=== PATIENT | male | born 1935 | race Caucasian/White ===

== ENCOUNTER 2020-09-25 06:59 | Day surgery (SDC) | payer OTHER, BC ==
[2020-09-20 14:36] VITALS: BMI 28.3
[2020-09-25] MEDS ORDERED: CARBACHOL 0.01% INTRA-OCULAR 1.5 ML VIAL ONE (07:18)
[2020-09-25] MEDS ORDERED: LIDOCAINE 1% P/F 10 MG/ML VIAL ONE (07:18)
[2020-09-25] MEDS ORDERED: BSS (NA/CA/MG/K) BALANCED SALT SOLUTION OPHTH SOLN 15 ML BOTTLE ONE (07:18)
[2020-09-25] MEDS ORDERED: TETRACAINE 0.5% OPHTH SOLN 2 ML BOTTLE ONE (07:18)
[2020-09-25] MEDS ORDERED: EPINEPHrine/PF 1 MG/1 ML (1:1,000) AMPULE ONE (07:19)
[2020-09-25] MEDS ORDERED: NEO/POLYMYX B SULF/DEXAMETH OPHTHALMIC 5ML BOTTLE ONE (07:19)
[2020-09-25] MEDS: TROPICAMIDE 1% OPHTH SOLN 15 ML BOTTLE ONE ×3 (07:55→08:05)
[2020-09-25] MEDS: CIPROFLOXACIN 0.3% EYE DROPS 5 ML BOTTLE ONE ×3 (07:55→08:05)
[2020-09-25] MEDS: PHENYLEPHRINE 2.5% OPHTH SOLN 15 ML BOTTLE ONE ×3 (07:55→08:05)
[2020-09-25] MEDS: CYCLOPENTOLATE 2% OPHTH SOLN 2 ML BOTTLE ONE ×3 (07:55→08:05)
[2020-09-25 08:03] VITALS: TEMP 98.4
[2020-09-25] MEDS ORDERED: MIDAZOLAM HCL 2 MG/2 ML SINGLE DOSE VIAL ONE (08:41)
[2020-09-25 09:31] VITALS: BP 131/77; PULSE 59
== END 2020-09-25 10:00 | disposition home or self-care (01) ==
LOC: FASU 06:59
PROVIDERS: ATTEND Ophthalmology
PROC: 08RK3JZ Replacement of Left Lens with Synthetic Substitute, Percutaneous Approach (ICD-10-PCS; principal; 2020-09-25 08:40)
DX: H26.8 Other specified cataract (principal)

== ENCOUNTER 2022-11-28 15:32 | Inpatient (IN) | payer OTHER, BC ==
[2022-11-28 15:53] VITALS: BMI 26.5
[2022-11-28] MEDS ORDERED: LABETALOL HCL 5 MG/1 ML (100MG/20 ML VIAL) IVPUSH ONE (15:59)
[2022-11-28] MEDS ORDERED: METOPROLOL TARTRATE 50 MG TABLET (FP) PO ONE (16:13)
[2022-11-28 16:42] LABS: BASO % 1.1 % (0-2.0); EOS % 2.6 % (0-4.5); HEMOGLOBIN 14.5 GM/dL (11.7-16.9); LYMPH % 24.5 % (8-40); MCH 29.9 pg (25.7-33.7); MCHC 33.6 g/dl (32.0-35.9); MEAN PLT VOLUME 8.4 fl (7.5-11.1); MONO % 7.8 % (3.8-10.2); PLATELET COUNT 179 10^3/uL (134-434); RBC 4.83 M/mm3 (4.00-5.60); RDW 13.4 % (11.9-15.9); WHITE BLOOD COUNT 7.3 K/mm3 (4.0-10.0)
[2022-11-28] MEDS ORDERED: METOPROLOL TARTRATE 50 MG TABLET (FP) ONE (16:47)
[2022-11-28 16:59] LABS: CALCIUM 8.8 mg/dL (8.5-10.1)
[2022-11-28 17:00] LABS: ALBUMIN 3.6 g/dl (3.4-5.0); BLOOD UREA NITROGEN 19.1 mg/dL (7-18)
[2022-11-28 17:03] LABS: CREATININE 1.2 mg/dL (0.55-1.3)
[2022-11-28 17:04] LABS: BILIRUBIN,TOTAL 0.6 mg/dL (0.2-1); TOT PROT 6.6 g/dl (6.4-8.2)
[2022-11-28 17:08] LABS: N-TERMINAL BNP 1551.8 pg/ml (5-450)
[2022-11-28 17:16] LABS: EPI CELLS 1 /uL (0-25.1); HYALINE CASTS 0 /uL (0-3.1); URINE APPEARANCE CLEAR; URINE BACTERIA 9 /uL (0-1359); URINE BILIRUBIN NEGATIVE (NEGATIVE); URINE COLOR YELLOW; URINE GLUCOSE (UA) NEGATIVE (NEGATIVE); URINE KETONE NEGATIVE (NEGATIVE); URINE LEUK ESTERASE NEGATIVE (NEGATIVE); URINE NITRITE NEGATIVE (NEGATIVE); URINE PROTEIN TRACE (NEGATIVE); URINE RBC 18 /uL (0-23.9); URINE UROBILINOGEN 0.2 mg/dL (0.2-1.0); URINE WBC 3 /uL (0-25.8)
[2022-11-28] MEDS ORDERED: FUROSEMIDE 40 MG/4 ML INJECTABLE VIAL IVPUSH ONE (19:01)
[2022-11-28] MEDS ORDERED: FUROSEMIDE 40 MG/4 ML INJECTABLE VIAL ONE (19:34)
[2022-11-29] MEDS ORDERED: amLODIPine BESYLATE 10 MG TABLET (FP) PO ONE ×2 (05:17→23:43)
[2022-11-29] MEDS ORDERED: LOSARTAN POTASSIUM 50 MG TABLET ONE (08:45)
[2022-11-29] MEDS ORDERED: LOSARTAN POTASSIUM 50 MG TABLET PO SCH (10:00)
[2022-11-29 11:05] LABS: BASO % 0.7 % (0-2.0); EOS % 0.5 % (0-4.5); HEMATOCRIT 44.6 % (35.4-49); LYMPH % 12.6 % (8-40); MCH 29.7 pg (25.7-33.7); MCHC 33.5 g/dl (32.0-35.9); MEAN CELL VOLUME 88.5 fl (80-96); MEAN PLT VOLUME 7.9 fl (7.5-11.1); MONO % 7.9 % (3.8-10.2); NEUT % 78.3 % (42.8-82.8); PLATELET COUNT 189 10^3/uL (134-434); RBC 5.04 M/mm3 (4.00-5.60); RDW 13.7 % (11.9-15.9); WHITE BLOOD COUNT 10.8 K/mm3 (4.0-10.0)
[2022-11-29 11:39] LABS: CALCIUM 8.9 mg/dL (8.5-10.1)
[2022-11-29 11:40] LABS: ALBUMIN 3.7 g/dl (3.4-5.0); BLOOD UREA NITROGEN 17.3 mg/dL (7-18); MAGNESIUM 1.7 mg/dL (1.8-2.4)
[2022-11-29 11:43] LABS: CREATININE 1.1 mg/dL (0.55-1.3)
[2022-11-29 11:44] LABS: BILIRUBIN,TOTAL 0.6 mg/dL (0.2-1); TOT PROT 6.9 g/dl (6.4-8.2)
[2022-11-29] MEDS ORDERED: MAGNESIUM SULF 50% (8.12 MEQ/2 ML-1 GM VIAL) IVPB ONE (17:04)
[2022-11-29] MEDS ORDERED: MAGNESIUM SULFATE IN WATER 2 GM/50 ML IVPB IVPB ONE (18:00)
[2022-11-29] MEDS: ATORVASTATIN CA 20 MG TABLET (FP) PO SCH (23:14)
[2022-11-30] MEDS: ATORVASTATIN CA 20 MG TABLET (FP) PO SCH ×2 (00:35→21:06)
[2022-11-30] MEDS: LOSARTAN POTASSIUM 50 MG TABLET PO SCH (09:25)
[2022-11-30] MEDS: amLODIPine BESYLATE 5 MG TABLET (FP) PO SCH (09:25)
[2022-11-30 11:39] LABS: BASO % 0.5 % (0-2.0); HEMATOCRIT 45.8 % (35.4-49); HEMOGLOBIN 15.6 GM/dL (11.7-16.9); MCHC 34.1 g/dl (32.0-35.9); MEAN CELL VOLUME 88.1 fl (80-96); MEAN PLT VOLUME 8.2 fl (7.5-11.1); MONO % 9.7 % (3.8-10.2); NEUT % 77.8 % (42.8-82.8); PLATELET COUNT 200 10^3/uL (134-434); RDW 13.2 % (11.9-15.9); WHITE BLOOD COUNT 9.9 K/mm3 (4.0-10.0)
[2022-11-30 11:44] LABS: ALBUMIN 3.7 g/dl (3.4-5.0); BLOOD UREA NITROGEN 22.4 mg/dL (7-18); CALCIUM 8.8 mg/dL (8.5-10.1); MAGNESIUM 2.2 mg/dL (1.8-2.4)
[2022-11-30 11:46] LABS: CREATININE 1.2 mg/dL (0.55-1.3)
[2022-11-30 11:48] LABS: BILIRUBIN,TOTAL 0.9 mg/dL (0.2-1)
[2022-11-30] MEDS: HEPARIN NA (PORCINE) 5,000 UNITS/ML 1ML VIAL SQ SCH (21:05)
[2022-12-01 07:34] VITALS: RESP 20
[2022-12-01] MEDS: amLODIPine BESYLATE 5 MG TABLET (FP) PO SCH (09:54)
[2022-12-01] MEDS: LOSARTAN POTASSIUM 50 MG TABLET PO SCH (09:55)
[2022-12-01] MEDS: HEPARIN NA (PORCINE) 5,000 UNITS/ML 1ML VIAL SQ SCH (09:55)
[2022-12-01 16:26] VITALS: BP 134/65; PULSE 61; TEMP 97.7
== END 2022-12-01 17:00 | disposition home health service (06) | DRG 305 ==
LOC: JER 15:32 → JERBED 20:04 → J4W 11-29 22:56
PROVIDERS: ADMIT Internal Medicine; ATTEND Family Medicine
DX: I16.0 Hypertensive urgency (principal); I25.10 Atherosclerotic heart disease of native coronary artery without angina pectoris; E78.5 Hyperlipidemia, unspecified; R79.89 Other specified abnormal findings of blood chemistry; I10 Essential (primary) hypertension; E87.6 Hypokalemia; R42 Dizziness and giddiness; E83.42 Hypomagnesemia; R41.0 Disorientation, unspecified; Z85.46 Personal history of malignant neoplasm of prostate; Z95.5 Presence of coronary angioplasty implant and graft
CPT/HCPCS: 0241U-QW; 36415; 70450-TC; 71045-TC-FY; 80053; 81003; 82607; 83605; 83735; 83880; 84443; 84484; 85025; 93005; 93010; 93306-TC; 93880-TC; 99285-25; J1644

== ENCOUNTER 2025-01-07 15:22 | Inpatient (IN) | payer OTHER, BC ==
[2025-01-07 16:59] LABS: VENOUS BASE EXCESS -2.5 mmol/L (-2-2); VENOUS PCO2 42.5 mmHg (38-52); VENOUS PH 7.352 (7.310-7.410)
[2025-01-07 17:12] LABS: POTASSIUM 3.4 mmol/L (3.5-5.1)
[2025-01-07 17:14] LABS: CALCIUM 8.8 mg/dL (8.5-10.1)
[2025-01-07 17:15] LABS: ALBUMIN 2.5 g/dl (3.4-5.0)
[2025-01-07 17:18] LABS: CREATININE 1.1 mg/dL (0.55-1.3)
[2025-01-07 17:19] LABS: BILIRUBIN,TOTAL 1.4 mg/dL (0.2-1); HEMATOCRIT 37.6 % (35.4-49); HEMOGLOBIN 12.5 GM/dL (11.7-16.9); INR 1.29 (0.83-1.09); MCH 29.8 pg (25.7-33.7); MCHC 33.3 g/dl (32.0-35.9); MEAN CELL VOLUME 89.4 fl (80-96); MEAN PLT VOLUME 6.9 fl (7.5-11.1); PLATELET COUNT 365 10^3/uL (134-434); PROTHROMBIN TIME (PATIENT) 14.1 SEC (9.7-13.0); RBC 4.21 M/mm3 (4.00-5.60); RDW 13.1 % (11.9-15.9); TOT PROT 6.6 g/dl (6.4-8.2)
[2025-01-07 17:21] LABS: ACTIVATED PTT 29.9 SECONDS (25.2-36.5)
[2025-01-07] MEDS: SODIUM CHLORIDE 0.9% 500 ML INFUS.BAG IV ONE (18:02)
[2025-01-07 18:19] LABS: ANISOCYTOSIS 1+; MACROCYTOSIS 0
[2025-01-07 18:55] LABS: EPI CELLS 12 /uL (0-25.1); HYALINE CASTS 1 /uL (0-3.1); URINE APPEARANCE Clear; URINE BACTERIA 2 /uL (0-1359); URINE BILIRUBIN Negative (NEGATIVE); URINE COLOR Yellow; URINE GLUCOSE (UA) Negative (NEGATIVE); URINE KETONE Trace (NEGATIVE); URINE LEUK ESTERASE Negative (NEGATIVE); URINE NITRITE Negative (NEGATIVE); URINE PROTEIN 30 (NEGATIVE); URINE RBC 10 /uL (0-23.9); URINE WBC 14 /uL (0-25.8)
[2025-01-07] MEDS ORDERED: ENOXAPARIN NA (PORCINE) 80 MG/0.8 ML DISP.SYRIN SQ ONE (21:46)
[2025-01-07] MEDS ORDERED: ASPIRIN 81 MG CHEWABLE TABLETS ONE (21:46)
[2025-01-07] MEDS ORDERED: ATORVASTATIN CA 20 MG TABLET (FP) ONE (21:46)
[2025-01-07] MEDS: ENOXAPARIN NA (PORCINE) 80 MG/0.8 ML DISP.SYRIN SQ SCH (22:07)
[2025-01-07] MEDS: ASPIRIN 81 MG CHEWABLE TABLETS PO SCH (22:07)
[2025-01-07] MEDS: ATORVASTATIN CA 20 MG TABLET (FP) PO SCH (22:07)
[2025-01-08] MEDS: ACETAMINOPHEN 325 MG TABLET (FP) PO PRN (05:12)
[2025-01-08 07:07] LABS: HEMATOCRIT 31.2 % (35.4-49); HEMOGLOBIN 10.5 GM/dL (11.7-16.9); MCH 29.9 pg (25.7-33.7); MCHC 33.7 g/dl (32.0-35.9); MEAN CELL VOLUME 88.6 fl (80-96); PLATELET COUNT 323 10^3/uL (134-434); RBC 3.52 M/mm3 (4.00-5.60); RDW 13.1 % (11.9-15.9); WHITE BLOOD COUNT 21.4 K/mm3 (4.0-10.0)
[2025-01-08 07:11] LABS: POTASSIUM 3.2 mmol/L (3.5-5.1)
[2025-01-08 07:13] LABS: CALCIUM 8.3 mg/dL (8.5-10.1)
[2025-01-08 07:14] LABS: MAGNESIUM 1.8 mg/dL (1.8-2.4)
[2025-01-08 07:17] LABS: PHOSPHOROUS 3.8 mg/dL (2.5-4.9)
[2025-01-08] MEDS ORDERED: POTASSIUM CHLORIDE ORAL LIQUID 20 MEQ/15 ML ONE (08:54)
[2025-01-08] MEDS: POTASSIUM CHLORIDE ORAL LIQUID 20 MEQ/15 ML PO ONE (09:19)
[2025-01-08] MEDS ORDERED: LOSARTAN POTASSIUM 50 MG TABLET ONE (10:16)
[2025-01-08] MEDS: methylPREDNISolone NA SUCC 40 MG/1 ML VIAL IVPUSH SCH (11:08)
[2025-01-08] MEDS: LOSARTAN POTASSIUM 50 MG TABLET PO SCH (11:08)
[2025-01-09 07:11] LABS: HEMATOCRIT 36.8 % (35.4-49); HEMOGLOBIN 12.1 GM/dL (11.7-16.9); MCH 29.9 pg (25.7-33.7); MCHC 32.8 g/dl (32.0-35.9); MEAN CELL VOLUME 91.2 fl (80-96); MEAN PLT VOLUME 7.7 fl (7.5-11.1); PLATELET COUNT 368 10^3/uL (134-434); RBC 4.04 M/mm3 (4.00-5.60); RDW 13.3 % (11.9-15.9); WHITE BLOOD COUNT 21.1 K/mm3 (4.0-10.0)
[2025-01-09 07:29] LABS: CALCIUM 9.1 mg/dL (8.5-10.1); POTASSIUM 3.7 mmol/L (3.5-5.1)
[2025-01-09 07:30] LABS: ALBUMIN 2.2 g/dl (3.4-5.0); BLOOD UREA NITROGEN 38.6 mg/dL (7-18)
[2025-01-09 07:33] LABS: CREATININE 1.1 mg/dL (0.55-1.3)
[2025-01-09 07:34] LABS: BILIRUBIN,TOTAL 0.7 mg/dL (0.2-1); TOT PROT 6.4 g/dl (6.4-8.2)
[2025-01-09] MEDS: CEFTRIAXONE 1 G/50 ML PREMIX 50 ML IVPB SCH (10:06)
[2025-01-09] MEDS: AZITHROMYCIN IVPB 500 MG/250 ML BAG IVPB SCH (10:06)
[2025-01-09 14:17] VITALS: BMI 24.2
[2025-01-09] MEDS: AMINO ACIDS/PROTEIN HYDROLYS 30 ML LIQUID.PKT PO SCH (16:54)
[2025-01-10 07:05] LABS: HEMATOCRIT 34.8 % (35.4-49); HEMOGLOBIN 11.2 GM/dL (11.7-16.9); MCH 29.2 pg (25.7-33.7); MCHC 32.4 g/dl (32.0-35.9); MEAN CELL VOLUME 90.1 fl (80-96); MEAN PLT VOLUME 7.4 fl (7.5-11.1); PLATELET COUNT 377 10^3/uL (134-434); RBC 3.86 M/mm3 (4.00-5.60); RDW 13.1 % (11.9-15.9); WHITE BLOOD COUNT 17.9 K/mm3 (4.0-10.0)
[2025-01-10 07:26] LABS: POTASSIUM 3.8 mmol/L (3.5-5.1)
[2025-01-10 07:33] LABS: BLOOD UREA NITROGEN 42.7 mg/dL (7-18); CALCIUM 8.8 mg/dL (8.5-10.1)
[2025-01-10 07:34] LABS: ALBUMIN 2.1 g/dl (3.4-5.0)
[2025-01-10 07:38] LABS: BILIRUBIN,TOTAL 0.5 mg/dL (0.2-1); TOT PROT 5.9 g/dl (6.4-8.2)
[2025-01-10 09:34] LABS: ANISOCYTOSIS 0; MACROCYTOSIS 0
[2025-01-10] MEDS: MULTIVITAMINS (DAILY MVI) TABLET (FP) PO SCH (10:09)
[2025-01-10] MEDS: ASCORBIC ACID 500 MG TABLET (FP) PO SCH (10:09)
[2025-01-10] MEDS: ZINC SULFATE 220 MG CAPSULE (FP) PO SCH (10:09)
[2025-01-10] MEDS ORDERED: DEXTROSE 5%-0.45% SALINE 1,000 ML IV SCH (22:30)
[2025-01-10] MEDS: SODIUM CHLORIDE 1,000 ML IV SCH (22:44)
[2025-01-11] MEDS ORDERED: HALOPERIDOL LACTATE 5 MG/ML IM PRN (09:15)
[2025-01-11] MEDS: PANTOPRAZOLE SODIUM 40 MG VIAL IVPUSH SCH (11:18)
[2025-01-11] MEDS: HEPARIN NA (PORCINE) 5,000 UNITS/ML 1ML VIAL SQ SCH (11:18)
[2025-01-11] MEDS: ALBUTEROL SO4 0.083% IH SOL 2.5 MG/3 ML VIAL.NEB. NEB SCH (15:20)
[2025-01-12] MEDS: METOPROLOL TARTRATE 5 MG/5 ML VIAL IVPUSH PRN (09:42)
[2025-01-12] MEDS: MINERAL OIL/PET HY-PHL TOPICAL OINTMENT 454 GM JAR TP SCH (10:58)
[2025-01-12 14:13] LABS: HEMATOCRIT 36.1 % (35.4-49); HEMOGLOBIN 11.9 GM/dL (11.7-16.9); MCHC 32.9 g/dl (32.0-35.9); MEAN CELL VOLUME 91.2 fl (80-96); MEAN PLT VOLUME 7.8 fl (7.5-11.1); PLATELET COUNT 323 10^3/uL (134-434); RBC 3.96 M/mm3 (4.00-5.60); RDW 12.8 % (11.9-15.9); WHITE BLOOD COUNT 15.5 K/mm3 (4.0-10.0)
[2025-01-12 14:46] LABS: POTASSIUM 3.6 mmol/L (3.5-5.1)
[2025-01-12 14:47] LABS: ALBUMIN 2.1 g/dl (3.4-5.0); CALCIUM 8.5 mg/dL (8.5-10.1)
[2025-01-12 14:48] LABS: BLOOD UREA NITROGEN 35.6 mg/dL (7-18); MAGNESIUM 1.9 mg/dL (1.8-2.4)
[2025-01-12 14:51] LABS: PHOSPHOROUS 2.9 mg/dL (2.5-4.9)
[2025-01-12 14:52] LABS: BILIRUBIN,TOTAL 0.6 mg/dL (0.2-1); TOT PROT 5.8 g/dl (6.4-8.2)
[2025-01-12] MEDS: AMINO ACIDS 4.25%/D5W 1,000 ML IV SCH (16:00)
[2025-01-12] MEDS: POTASSIUM CHLORIDE 20 MEQ in AMINO ACIDS 4.25%/D5W 1,000 ML IV SCH (18:44)
[2025-01-12] MEDS: METOPROLOL TARTRATE 5 MG/5 ML VIAL IVPUSH SCH (22:11)
[2025-01-13 07:44] LABS: HEMATOCRIT 37.8 % (35.4-49); HEMOGLOBIN 12.3 GM/dL (11.7-16.9); MCH 29.5 pg (25.7-33.7); MCHC 32.6 g/dl (32.0-35.9); MEAN CELL VOLUME 90.4 fl (80-96); MEAN PLT VOLUME 8.1 fl (7.5-11.1); PLATELET COUNT 328 10^3/uL (134-434); RBC 4.18 M/mm3 (4.00-5.60); RDW 12.6 % (11.9-15.9); WHITE BLOOD COUNT 16.5 K/mm3 (4.0-10.0)
[2025-01-13 08:13] LABS: ALBUMIN 2.3 g/dl (3.4-5.0); BLOOD UREA NITROGEN 34.2 mg/dL (7-18); CALCIUM 8.5 mg/dL (8.5-10.1); MAGNESIUM 1.9 mg/dL (1.8-2.4)
[2025-01-13 08:14] LABS: POTASSIUM 3.6 mmol/L (3.5-5.1)
[2025-01-13 08:16] LABS: BILIRUBIN,TOTAL 0.7 mg/dL (0.2-1); CREATININE 0.8 mg/dL (0.55-1.3); PHOSPHOROUS 2.2 mg/dL (2.5-4.9)
[2025-01-13 08:18] LABS: TOT PROT 6.2 g/dl (6.4-8.2)
[2025-01-13] MEDS: NAPH,MB-DB/K PH,MBDB POWDER PACKET PO SCH (11:40)
[2025-01-15 07:30] LABS: HEMATOCRIT 39.1 % (35.4-49); HEMOGLOBIN 12.8 GM/dL (11.7-16.9); MCH 29.6 pg (25.7-33.7); MCHC 32.7 g/dl (32.0-35.9); MEAN CELL VOLUME 90.5 fl (80-96); MEAN PLT VOLUME 8.5 fl (7.5-11.1); PLATELET COUNT 302 10^3/uL (134-434); RBC 4.33 M/mm3 (4.00-5.60); WHITE BLOOD COUNT 13.7 K/mm3 (4.0-10.0)
[2025-01-15 07:50] LABS: POTASSIUM 3.6 mmol/L (3.5-5.1)
[2025-01-15 08:01] LABS: ALBUMIN 2.4 g/dl (3.4-5.0); BLOOD UREA NITROGEN 30.8 mg/dL (7-18); CALCIUM 8.6 mg/dL (8.5-10.1)
[2025-01-15 08:03] LABS: CREATININE 0.9 mg/dL (0.55-1.3)
[2025-01-15 08:05] LABS: BILIRUBIN,TOTAL 0.7 mg/dL (0.2-1); TOT PROT 6.3 g/dl (6.4-8.2)
[2025-01-15] MEDS: amLODIPine BESYLATE 5 MG TABLET (FP) PO SCH (10:33)
[2025-01-16 08:11] LABS: POTASSIUM 3.8 mmol/L (3.5-5.1)
[2025-01-16 08:13] LABS: HEMATOCRIT 40.5 % (35.4-49); HEMOGLOBIN 13.3 GM/dL (11.7-16.9); MCH 29.5 pg (25.7-33.7); MEAN CELL VOLUME 89.6 fl (80-96); MEAN PLT VOLUME 8.5 fl (7.5-11.1); PLATELET COUNT 319 10^3/uL (134-434); RBC 4.52 M/mm3 (4.00-5.60); RDW 13.3 % (11.9-15.9); WHITE BLOOD COUNT 12.1 K/mm3 (4.0-10.0)
[2025-01-16 08:22] LABS: BLOOD UREA NITROGEN 35.2 mg/dL (7-18); CALCIUM 8.5 mg/dL (8.5-10.1)
[2025-01-16 08:23] LABS: ALBUMIN 2.4 g/dl (3.4-5.0)
[2025-01-16 08:27] LABS: BILIRUBIN,TOTAL 0.6 mg/dL (0.2-1); TOT PROT 6.1 g/dl (6.4-8.2)
[2025-01-16] MEDS: PANTOPRAZOLE 40 MG TABLET PO SCH (10:13)
[2025-01-17 02:56] VITALS: RESP 18
[2025-01-17 09:31] LABS: HEMATOCRIT 37.3 % (35.4-49); HEMOGLOBIN 12.3 GM/dL (11.7-16.9); MCH 29.9 pg (25.7-33.7); MCHC 32.9 g/dl (32.0-35.9); MEAN CELL VOLUME 90.9 fl (80-96); MEAN PLT VOLUME 8.3 fl (7.5-11.1); PLATELET COUNT 262 10^3/uL (134-434); RBC 4.11 M/mm3 (4.00-5.60); RDW 13.2 % (11.9-15.9); WHITE BLOOD COUNT 10.2 K/mm3 (4.0-10.0)
[2025-01-17] MEDS: amLODIPine BESYLATE 5 MG TABLET (FP) PO SCH (09:56)
[2025-01-17] MEDS: NAPH,MB-DB/K PH,MBDB POWDER PACKET PO SCH (09:56)
[2025-01-17] MEDS: PANTOPRAZOLE 40 MG TABLET PO SCH (09:56)
[2025-01-17] MEDS: CEFTRIAXONE 1 G/50 ML PREMIX 50 ML IVPB SCH (09:57)
[2025-01-17] MEDS: HEPARIN NA (PORCINE) 5,000 UNITS/ML 1ML VIAL SQ SCH (09:57)
[2025-01-17] MEDS: MINERAL OIL/PET HY-PHL TOPICAL OINTMENT 454 GM JAR TP SCH (09:58)
[2025-01-17] MEDS: ALBUTEROL SO4 0.083% IH SOL 2.5 MG/3 ML VIAL.NEB. NEB SCH (11:15)
[2025-01-17] MEDS ORDERED: SODIUM CHLORIDE 0.45% 1,000 ML IV SCH (15:15)
[2025-01-18] MEDS: NAPH,MB-DB/K PH,MBDB POWDER PACKET PO SCH (09:16)
[2025-01-18 09:17] LABS: POTASSIUM 3.9 mmol/L (3.5-5.1)
[2025-01-18 09:27] LABS: CALCIUM 8.3 mg/dL (8.5-10.1)
[2025-01-18 09:28] LABS: ALBUMIN 2.3 g/dl (3.4-5.0); BLOOD UREA NITROGEN 25.4 mg/dL (7-18)
[2025-01-18 09:31] LABS: CREATININE 0.8 mg/dL (0.55-1.3); PHOSPHOROUS 2.3 mg/dL (2.5-4.9)
[2025-01-18 09:32] LABS: BILIRUBIN,TOTAL 1.2 mg/dL (0.2-1)
[2025-01-18 09:33] LABS: TOT PROT 5.4 g/dl (6.4-8.2)
[2025-01-18 14:16] VITALS: BP 122/65; PULSE 66; TEMP 98.4
== END 2025-01-18 22:00 | disposition home or self-care (01) | DRG 871 ==
LOC: JER 15:22 → JERBED 19:58 → J4W 01-08 10:27 → J6S 01-16 23:19
PROVIDERS: ADMIT Internal Medicine; ATTEND Family Medicine
DX: A41.9 Sepsis, unspecified organism (principal); J18.9 Pneumonia, unspecified organism; J98.11 Atelectasis; L89.152 Pressure ulcer of sacral region, stage 2; L89.321 Pressure ulcer of left buttock, stage 1; L89.311 Pressure ulcer of right buttock, stage 1; E78.5 Hyperlipidemia, unspecified; I48.91 Unspecified atrial fibrillation; I25.118 Atherosclerotic heart disease of native coronary artery with other forms of angina pectoris; F03.90 Unspecified dementia, unspecified severity, without behavioral disturbance, psychotic disturbance, mood disturbance, and anxiety; I12.9 Hypertensive chronic kidney disease with stage 1 through stage 4 chronic kidney disease, or unspecified chronic kidney disease; R56.9 Unspecified convulsions; N18.9 Chronic kidney disease, unspecified; D64.9 Anemia, unspecified; I25.10 Atherosclerotic heart disease of native coronary artery without angina pectoris; G25.3 Myoclonus
CPT/HCPCS: 0241U-QW; 36415; 70450-TC; 70496-TC; 70498-TC; 71045-TC-FY; 80048; 80053; 81003; 82140; 82607; 82803; 82962; 83605; 83690; 83735; 84100; 84443; 84484; 85025; 85027; 85610; 85730; 86140; 86850; 86900; 86901; 87040; 87086; 87899; 93005; 93010; 93880-TC; 94010; 94640; 97116-GP; 97162-GP; 99291; J1644; Q9967

== ENCOUNTER 2025-01-27 01:56 | Inpatient (IN) | payer OTHER, BC ==
[2025-01-27 02:12] VITALS: BMI 23.6
[2025-01-27] MEDS ORDERED: ACETAMINOPHEN INJECTION 100 ML ONE (03:05)
[2025-01-27] MEDS ORDERED: MORPHINE SULFATE 2 MG/ML SYRINGE ONE (03:05)
[2025-01-27 03:08] LABS: BASO % 0.8 % (0-2.0); EOS % 1.7 % (0-4.5); HEMATOCRIT 33.1 % (35.4-49); HEMOGLOBIN 11.4 GM/dL (11.7-16.9); LYMPH % 11.7 % (8-40); MCH 30.5 pg (25.7-33.7); MCHC 34.3 g/dl (32.0-35.9); MEAN CELL VOLUME 88.7 fl (80-96); MONO % 7.1 % (3.8-10.2); NEUT % 78.7 % (42.8-82.8); PLATELET COUNT 181 10^3/uL (134-434); RBC 3.74 M/mm3 (4.00-5.60); RDW 13.8 % (11.9-15.9); WHITE BLOOD COUNT 6.2 K/mm3 (4.0-10.0)
[2025-01-27] MEDS: morphine CARPU-JECT 2 MG/1 ML DISP.SYRIN IVPUSH ONE (03:11)
[2025-01-27] MEDS: ACETAMINOPHEN 1000 MG/100 ML BAG IVPB ONE (03:11)
[2025-01-27 03:31] LABS: INR 1.07 (0.83-1.09); PROTHROMBIN TIME (PATIENT) 11.8 SEC (9.7-13.0)
[2025-01-27 03:33] LABS: ACTIVATED PTT 26.3 SECONDS (25.2-36.5)
[2025-01-27 03:35] LABS: POTASSIUM 4.7 mmol/L (3.5-5.1)
[2025-01-27 03:37] LABS: ALBUMIN 2.4 g/dl (3.4-5.0)
[2025-01-27 03:38] LABS: BLOOD UREA NITROGEN 26.4 mg/dL (7-18)
[2025-01-27 03:42] LABS: BILIRUBIN,TOTAL 0.6 mg/dL (0.2-1); TOT PROT 5.6 g/dl (6.4-8.2)
[2025-01-27] MEDS: ACETAMINOPHEN 1000 MG/100 ML BAG IVPB PRN (12:05)
[2025-01-27] MEDS ORDERED: ALBUTEROL SO4 2.5/IPRATROPIUM 0.5 INH SOL 3 ML VIAL.NEB. NEB PRN (15:38)
[2025-01-28] MEDS ORDERED: BUPIVACAINE HCL/PF 0.5% (5MG/ML) 10 ML VIAL ONE (07:35)
[2025-01-28] MEDS ORDERED: SUCCINYLCHOLINE CHLORIDE 200 MG/10 ML SYRINGE ONE (08:09)
[2025-01-28] MEDS ORDERED: PROPOFOL 40 ML ONE (08:12)
[2025-01-28] MEDS ORDERED: MIDAZOLAM HCL 2 MG/2 ML SINGLE DOSE VIAL ONE (08:54)
[2025-01-28] MEDS: ceFAZolin SODIUM 1 GM VIAL IVPB ONE (09:10)
[2025-01-28] MEDS ORDERED: ceFAZolin SODIUM 1 GM VIAL ONE (09:14)
[2025-01-28 09:19] LABS: BASO % 0.6 % (0-2.0); EOS % 0.4 % (0-4.5); HEMATOCRIT 28.4 % (35.4-49); HEMOGLOBIN 9.8 GM/dL (11.7-16.9); LYMPH % 15.2 % (8-40); MCH 30.4 pg (25.7-33.7); MCHC 34.6 g/dl (32.0-35.9); MEAN PLT VOLUME 7.7 fl (7.5-11.1); MONO % 8.2 % (3.8-10.2); NEUT % 75.6 % (42.8-82.8); PLATELET COUNT 149 10^3/uL (134-434); RBC 3.23 M/mm3 (4.00-5.60); RDW 14.1 % (11.9-15.9); WHITE BLOOD COUNT 6.8 K/mm3 (4.0-10.0)
[2025-01-28] MEDS ORDERED: ONDANSETRON 4 MG/2 ML VIAL ONE (09:36)
[2025-01-28] MEDS ORDERED: DEXAMETHASONE SOD PHOSPHATE 4 MG/1 ML VIAL ONE (09:36)
[2025-01-28 09:39] LABS: POTASSIUM 4.2 mmol/L (3.5-5.1)
[2025-01-28 09:42] LABS: ALBUMIN 2.4 g/dl (3.4-5.0); BLOOD UREA NITROGEN 28.3 mg/dL (7-18)
[2025-01-28 09:46] LABS: TOT PROT 5.2 g/dl (6.4-8.2)
[2025-01-28] MEDS ORDERED: ALBUTEROL SO4 2.5/IPRATROPIUM 0.5 INH SOL 3 ML VIAL.NEB. NEB PRN (10:43)
[2025-01-28] MEDS ORDERED: ACETAMINOPHEN 1000 MG/100 ML BAG IVPB PRN (10:43)
[2025-01-28] MEDS: amLODIPine BESYLATE 5 MG TABLET (FP) PO SCH (13:33)
[2025-01-28] MEDS: CEFAZOLIN 1 GM/D5W 1 GM/50 ML BAG IVPB SCH (14:08)
[2025-01-28] MEDS: ACETAMINOPHEN 1000 MG/100 ML BAG IVPB ONE (20:32)
[2025-01-29] MEDS: MELATONIN 5 MG TABLETS PO PRN (01:13)
[2025-01-29] MEDS ORDERED: ACETAMINOPHEN 1000 MG/100 ML BAG IVPB PRN (02:30)
[2025-01-29] MEDS: ENOXAPARIN NA (PORCINE) 30 MG/0.3 ML DISP.SYRIN SQ SCH (09:05)
[2025-01-29] MEDS: amLODIPine BESYLATE 5 MG TABLET (FP) PO SCH (09:05)
[2025-01-29 10:10] LABS: BASO % 0.6 % (0-2.0); EOS % 0.1 % (0-4.5); HEMATOCRIT 25.1 % (35.4-49); HEMOGLOBIN 8.3 GM/dL (11.7-16.9); LYMPH % 9.7 % (8-40); MCH 29.7 pg (25.7-33.7); MCHC 33.3 g/dl (32.0-35.9); MEAN CELL VOLUME 89.1 fl (80-96); MEAN PLT VOLUME 8.1 fl (7.5-11.1); MONO % 5.1 % (3.8-10.2); NEUT % 84.5 % (42.8-82.8); PLATELET COUNT 131 10^3/uL (134-434); RBC 2.81 M/mm3 (4.00-5.60); RDW 14.5 % (11.9-15.9); WHITE BLOOD COUNT 9.6 K/mm3 (4.0-10.0)
[2025-01-29 10:28] LABS: POTASSIUM 4.1 mmol/L (3.5-5.1)
[2025-01-29 10:37] LABS: BLOOD UREA NITROGEN 25.7 mg/dL (7-18); CALCIUM 8.3 mg/dL (8.5-10.1)
[2025-01-29 10:38] LABS: ALBUMIN 2.2 g/dl (3.4-5.0)
[2025-01-29 10:40] LABS: CREATININE 0.9 mg/dL (0.55-1.3)
[2025-01-29 10:42] LABS: BILIRUBIN,TOTAL 0.7 mg/dL (0.2-1); TOT PROT 5.1 g/dl (6.4-8.2)
[2025-01-29 20:28] VITALS: TEMP 98.1
[2025-01-30 09:37] LABS: BASO % 0.6 % (0-2.0); EOS % 0.9 % (0-4.5); HEMATOCRIT 22.6 % (35.4-49); HEMOGLOBIN 7.8 GM/dL (11.7-16.9); LYMPH % 14.9 % (8-40); MCH 30.6 pg (25.7-33.7); MCHC 34.4 g/dl (32.0-35.9); MEAN CELL VOLUME 89.1 fl (80-96); MEAN PLT VOLUME 7.7 fl (7.5-11.1); MONO % 8.4 % (3.8-10.2); NEUT % 75.2 % (42.8-82.8); PLATELET COUNT 140 10^3/uL (134-434); RBC 2.53 M/mm3 (4.00-5.60); RDW 14.6 % (11.9-15.9)
[2025-01-30 09:48] LABS: POTASSIUM 4.1 mmol/L (3.5-5.1)
[2025-01-30 09:50] LABS: ALBUMIN 2.2 g/dl (3.4-5.0)
[2025-01-30 09:51] LABS: TOT PROT 4.9 g/dl (6.4-8.2)
[2025-01-30 09:52] LABS: BILIRUBIN,TOTAL 0.8 mg/dL (0.2-1)
[2025-01-30 09:53] LABS: CREATININE 0.9 mg/dL (0.55-1.3)
[2025-01-30 10:41] VITALS: BP 151/113; PULSE 76; RESP 17
[2025-01-30] MEDS: MULTIVITAMINS THER W-MINERALS COMBO TABLET (FP) PO SCH (10:43)
[2025-01-30] MEDS: IRON SUCROSE INJECTION 200 MG in SODIUM CHLORIDE 100 ML IVPB ONE (12:36)
== END 2025-01-30 15:35 | DRG 482 ==
LOC: JER 01:56 → JERBED 06:58 → J6S 09:26
PROVIDERS: ADMIT Internal Medicine; ATTEND Family Medicine
PROC: 0QS706Z Reposition Left Upper Femur with Intramedullary Internal Fixation Device, Open Approach (ICD-10-PCS; principal; 2025-01-28 08:00)
DX: S72.142A Displaced intertrochanteric fracture of left femur, initial encounter for closed fracture (principal); M25.552 Pain in left hip; I10 Essential (primary) hypertension; E78.5 Hyperlipidemia, unspecified; I48.91 Unspecified atrial fibrillation; L89.151 Pressure ulcer of sacral region, stage 1; L89.311 Pressure ulcer of right buttock, stage 1; L89.321 Pressure ulcer of left buttock, stage 1; I25.10 Atherosclerotic heart disease of native coronary artery without angina pectoris; W19.XXXA Unspecified fall, initial encounter; Y93.9 Activity, unspecified; Y92.89 Other specified places as the place of occurrence of the external cause; Y99.9 Unspecified external cause status
CPT/HCPCS: 0241U-QW; 36415; 70450-TC; 71045-TC-FY; 71250-TC; 72125-TC; 72170-TC-FY; 72192-TC; 73552-TC-LT-FY; 73562-TC-LT-FY; 73700-TC-RT; 76000-TC-FY; 80053; 82728; 83540; 83550; 84466; 84484; 85025; 85610; 85730; 86850; 86900; 86901; 93005; 93010; 94760; 97116-GP; 97162-GP; 99285-25; C1713; J0131; J1756